=== PATIENT | female | born 1950 | race Caucasian/White ===

== ENCOUNTER → 2023-08-06 11:28 | Outpatient (REF) | payer MEDICARE, BC, SELFPAY | LOC: HWRAD 11:28 | PROVIDERS: ATTENDING PHYSICIAN Family Medicine | DX: R10.9 Unspecified abdominal pain (principal) | CPT/HCPCS: 76700 ==

== ENCOUNTER → 2023-09-10 10:43 | Outpatient (REF) | payer MEDICARE, BC, SELFPAY | LOC: HWRAD 10:43 | PROVIDERS: ATTENDING PHYSICIAN Family Medicine | DX: R10.13 Epigastric pain (principal) | CPT/HCPCS: 74176 ==

== ENCOUNTER 2025-05-29 06:21 | Day surgery (SDC) | payer MEDICARE, BC, SELFPAY | END 2025-05-29 15:26 | disposition home or self-care (01) | LOC: GI 06:21 | PROVIDERS: ATTENDING PHYSICIAN Internal Medicine Gastroenterology | DX: Z12.11 Encounter for screening for malignant neoplasm of colon (principal); K64.8 Other hemorrhoids; K57.30 Diverticulosis of large intestine without perforation or abscess without bleeding; K55.20 Angiodysplasia of colon without hemorrhage; D12.3 Benign neoplasm of transverse colon; R19.4 Change in bowel habit | CPT/HCPCS: 45380; 88305 ==